=== PATIENT | male | born 1970 | race Caucasian/White ===

== ENCOUNTER 2019-02-05 21:52 | Emergency (ER) | payer MEDICAID ==
[~2019-02-05] VITALS: Ht 172.7 cm; Wt 81.9 kg
[2019-02-05 22:22] LABS: BASOPHILS # (AUTO) 0.01 x10^3/uL (0-0.1); BASOPHILS % (AUTO) 0 % (0-1); EOSINOPHILS # (AUTO) 0.11 x10^3/uL (0-0.4); EOSINOPHILS % (AUTO) 1 % (1-7); LYMPHOCYTES % (AUTO) 20 % (22-44); MD NO; MEAN CORPUSCULAR HEMOGLOBIN 33.1 pg (27.5-34.5); MEAN CORPUSCULAR HGB CONC 33.2 g/dL (33.2-36.2); MEAN CORPUSCULAR VOLUME 99.6 fL (81-97); MEAN PLATELET VOLUME 7.3 fL (7.4-10.4); MONOCYTES # (AUTO) 0.69 x10^3/uL (0.2-0.8); MONOCYTES % (AUTO) 9 % (2-9); NEUTROPHILS # (AUTO) 5.76 x10^3/uL (1.8-6.8); NEUTROPHILS % (AUTO) 70 % (42-75); PLATELET COUNT 328 x10^3/uL (130-400); RED BLOOD COUNT 4.13 x10^6/uL (4.38-5.82); RED CELL DISTRIBUTION WIDTH 12.9 % (9.4-14.8)
[2019-02-05] MEDS ORDERED: MECLIZINE CHEWABLE 25 MG TAB PO ONE (22:30)
[2019-02-05 22:33] LABS: ALBUMIN 3.6 g/dL (3.4-5.0); ANION GAP 9 mmol/L (5-15); CALCIUM 8.9 mg/dL (8.5-10.1); CHLORIDE 107 mmol/L (98-107)
[2019-02-05] MEDS ORDERED: MECLIZINE CHEWABLE 25 MG TAB ONE (22:44)
--- NOTE | 2019-02-05 22:48 | NUR ---
PT RESTING IN BED CALMLY, FSBS DONE AND CHARTED. PT C/O BEING COLD, GIVEN WARM BLANKET. PT MEDICATED PER EMAR.
[2019-02-05 23:14] VITALS: BP 126/81
--- NOTE | 2019-02-05 23:14 | NUR ---
PT ABLE TO AMBULATE STEADILY. PT GIVEN RESOURCE PAMPHLET AND FOOD.
== END 2019-02-05 23:16 | disposition home or self-care (01) ==
LOC: ED 22:31
DX: H81.399 Other peripheral vertigo, unspecified ear (principal); H81.11 Benign paroxysmal vertigo, right ear; Z72.9 Problem related to lifestyle, unspecified; Z59.0 Homelessness; F17.200 Nicotine dependence, unspecified, uncomplicated
CPT/HCPCS: 36415; 80048; 82040; 82962; 85025; 93005; 99284